=== PATIENT | female | born 1995 | race American Indian/Alaskan Native ===

== ENCOUNTER 2019-02-23 21:42 | Emergency (ER) | payer MEDICAID ==
[2019-02-23 22:05] VITALS: RESP 18; TEMP 98.3; O2SAT 100
[2019-02-23] MEDS ORDERED: TDAP Vaccine 0.5 mL Syr IM ONE (22:28)
[2019-02-24] MEDS ORDERED: Bacitracin 500 Units/gm Oint Foilpak UD TOP ONE (00:12)
--- NOTE | 2019-02-24 00:12 | ED PDOC ---
Arrival/HPI - General Chief Complaint: Lower Extremity Problem/Injury Time Seen by Provider: 02/23/19 21:51 Historian: Patient - History of Present Illness Narrative History of Present Illness (Text): 23 year old female with no significant past medical history presents to the emergency department accompanied by Renetta GORDILLO complaining of left foot 3rd digit pain s/p injury this evening [employer]. Patient states she tripped and hit her left foot on the ground causing pain and bleeding to the 3rd digit. Bleeding controlled on the scene with pressure. Denies head injury or LOC. Unknown last tetanus. Denies numbness, weakness, wounds or pain elsewhere, or any other associated symptoms. Past Medical History - Provider Review Nursing Documentation Reviewed: Yes - Psychiatric Hx Substance Use: No - Anesthesia Hx Anesthesia: No Hx Anesthesia Reactions: No Hx Malignant Hyperthermia: No Family/Social History - Physician Review Nursing Documentation Reviewed: Yes Family/Social History: No Known Family HX Smoking Status: Never Smoked Hx Alcohol Use: Yes Frequency of alcohol use: Socially Hx Substance Use: No Allergies/Home Meds Allergies/Adverse Reactions: Allergies No Known Allergies Allergy (Verified 02/24/19 08:30) Review of Systems - Review of Systems Constitutional: Normal Eyes: Normal ENT: Normal Respiratory: Normal Cardiovascular: Normal Gastrointestinal: Normal Genitourinary Female: Normal Musculoskeletal: Other (left foot 3rd digit pain). absent: Back Pain, Neck Pain Skin: Other (left foot 3rd nail cracked). absent: Rash Neurological: Normal. absent: Headache, Dizziness Physical Exam Vital Signs Reviewed: Yes Vital Signs Temp Pulse Resp BP Pulse Ox 02/23/19 22:01 98.3 F 70 18 108/56 L 100 Temperature: Afebrile Blood Pressure: Hypotensive Pulse: Regular Respiratory Rate: Normal Appearance: Positive for: Well-Appearing, Non-Toxic, Comfortable Pain Distress: None Mental Status: Positive for: Alert and Oriented X 3 - Systems Exam Head: Present: Atraumatic, Normocephalic Pupils: Present: PERRL Extroacular Muscles: Present: EOMI Conjunctiva: Present: Normal Mouth: Present: Moist Mucous Membranes Neck: Present: Normal Range of Motion Respiratory/Chest: Present: Clear to Auscultation, Good Air Exchange. No: Respiratory Distress, Accessory Muscle Use Cardiovascular: Present: Regular Rate and Rhythm, Normal S1, S2 Upper Extremity: Present: Normal Inspection, Normal ROM Lower Extremity: Present: NORMAL PULSES, Normal ROM, Tenderness (left foot 3rd digit), Swelling (left foot 3rd digit, mild), Neurovascularly Intact, Capillary Refill < 2 s, Other (left foot 3rd digit nail cracked with small amount of dried blood; no active bleeding). No: Temperature Abnormalties Neurological: Present: GCS=15, Speech Normal, Gait Normal Skin: Present: Warm, Dry Psychiatric: Present: Alert, Oriented x 3 Medical Decision Making ED Course and Treatment: Initial Plan: * Left foot 3rd digit XR * TDaP * Ibuprofen * POC preg Xray read as negative for fracture by me. Pt placed in rainer toe wrap with bacitracin and bandage over injured digit. Surgical shoe placed by aircraft systems technician. Pt ambulating without difficulty. Advised that nail will fall off on its own over time. Wound care instructions discussed. Advised podiatry and PMD followup. Diagnostic testing results and plan of care discussed with patient. Strict instructions given regarding prescription use, importance of followup, and signs/symptoms to return to ER including numbness, weakness, paresthesias, or any other new/worsening symptoms. Pt verbalized understanding of discussion. Patient is A&Ox3, ambulating with steady gait, with vital signs stable for discharge. - RAD Interpretation Radiology Orders: 02/23/19 22:15 FOOT LEFT 3RD DIGIT (TOE) [RAD] Stat - Medication Orders Current Medication Orders: Discontinued Medications Ibuprofen (Motrin Tab) 600 mg PO STAT STA Stop: 02/23/19 22:29 Tetanus/Reduced Diphtheria/Acell Pertussis (Boostrix Vaccine Inj) 0.5 ml IM .ONCE ONE Stop: 02/23/19 22:29 Last Admin: 02/24/19 00:04 Dose: 0.5 ml Immunization Registry Document 02/24/19 00:04 AD (Rec: 02/24/19 00:04 AD [id number]) [facility]-Date provided 02/23/19 Disposition/Present on Arrival - Present on Arrival Any Indicators Present on Arrival: No History of DVT/PE: No History of Uncontrolled Diabetes: No Urinary Catheter: No History of Decub. Ulcer: No History Surgical Site Infection Following: None - Disposition Have Diagnosis and Disposition been Completed?: Yes Diagnosis: Toe sprain Disposition: RELEASED IN [employer] Disposition Time: 23:20 Condition: STABLE Discharge Instructions (ExitCare): Wound Care (DC), Toe Injury Additional Instructions: Patient is medically cleared for incarceration Keep toe clean, dry, covered Use surgical shoe to ambulate Followup with podiatry clinic within 2 days Followup with primary doctor within 2 days Return to ER with any new/worsening symptoms Referrals: Veronica Barbosa MD [Primary Care Provider] - Follow up with primary Podiatry Clinic [Outside] - Follow up with primary Forms: [employer] (Greek)
[2019-02-24 01:02] VITALS: BP 110/63; PULSE 75
--- NOTE | 2019-02-24 10:34 | RAD ---
Date of service: 02/23/2019 PROCEDURE: HISTORY: 3rd toe injury COMPARISON: None TECHNIQUE: Three views FINDINGS: No fracture or lytic lesion. No dislocation. Tiny os peroneum developmental variant incidentally noted. Some mild increased soft tissue density compatible with acute soft tissue injury to the 3rd toe noted. IMPRESSION: No acute osseous pathology suggested. Specifically no fracture or dislocation noted. Mild soft tissue swelling 3rd digit
== END 2019-02-24 00:39 ==
LOC: MERGE 21:42 → ED 21:42
DX: S93.505A Unspecified sprain of left lesser toe(s), initial encounter (principal); W18.40XA Slipping, tripping and stumbling without falling, unspecified, initial encounter; Z65.3 Problems related to other legal circumstances; Z23 Encounter for immunization